=== PATIENT | female | born 1955 | race Caucasian/White ===

== ENCOUNTER 2018-03-31 13:02 | Emergency (ER) | payer MEDICAID ==
[2018-03-31 13:07] VITALS: BP 159/61; PULSE 84; RESP 16; TEMP 98.5; O2SAT 97
--- NOTE | 2018-03-31 13:19 | ED PDOC ---
HPI: General Adult Time Seen by Provider: 03/31/18 13:07 Chief Complaint (Nursing): Back Pain Chief Complaint (Provider): fall History Per: Patient Additional Complaint(s): 62 y/o female presents with low back pain and b/l knee pain s/p trip and fall. Patient tripped on sidewalk. She denies any dizziness or syncope prior to fall. Patient did not sustain head injury or loss of consciousness. She arrives via ambulance for further evaluation. Injury occurred about 1 hour prior to arrival. PMD: Dr. Monae Past Medical History Reviewed: Historical Data, Nursing Documentation, Vital Signs Vital Signs: Last Vital Signs Temp 98.5 F 03/31/18 13:06 Pulse 84 03/31/18 13:06 Resp 16 03/31/18 13:06 BP 159/61 H 03/31/18 13:06 Pulse Ox 97 03/31/18 13:55 - Medical History PMH: Diabetes, HTN, Hypercholesterolemia - Surgical History Surgical History: Other surgeries: cyst removed from left breast - Family History Family History: States: No Known Family Hx - Living Arrangements Living Arrangements: With Family - Social History Current smoker - smoking cessation education provided: No Alcohol: None Drugs: Denies - Home Medications Home Medications: Ambulatory Orders Medication Instructions Recorded Aspirin [Aspirin Low Dose] 81 mg PO DAILY 12/31/14 Atorvastatin [Lipitor] 40 mg PO DAILY 12/31/14 MetFORMIN [glucoPHAGE] 1,000 mg PO BID 12/31/14 cloNIDine [Catapres] 0.1 mg PO DAILY 12/31/14 Amlodipine Besylate/Benazepril 1 cap PO DAILY 03/21/16 [Amlodipine-Benazepril 2.5-10] Aspirin [Adult Low Dose Aspirin EC] 81 mg PO DAILY 03/21/16 Cyclobenzaprine [Flexeril] 5 mg PO Q8H PRN #20 tab 03/21/16 Glimepiride [Amaryl] 4 mg PO DAILY 03/21/16 Ibuprofen [Motrin Tab] 800 mg PO Q8 PRN #20 tab 03/31/18 - Allergies Allergies/Adverse Reactions: Allergies Allergy/AdvReac Type Severity Reaction Status Date / Time iodine Allergy RASH Verified 03/31/18 13:05 Penicillins Allergy RASH Verified 03/21/16 19:35 Review of Systems ROS Statement: Except As Marked, All Systems Reviewed And Found Negative Musculoskeletal: Positive for: Back Pain, Other (b/l knee pain ) Neurological: Positive for: Other (no head injury or LOC) Physical Exam - Reviewed Nursing Documentation Reviewed: Yes Vital Signs Reviewed: Yes - Physical Exam Appears: Positive for: Well, Non-toxic, No Acute Distress Skin: Positive for: Normal Color. Negative for: Rash Eye Exam: Positive for: Normal appearance Neck: Positive for: Normal. Negative for: Pain On Movement Of Neck Cardiovascular/Chest: Positive for: Regular Rate, Rhythm Respiratory: Positive for: Normal Breath Sounds. Negative for: Wheezing, Respiratory Distress Back: Positive for: Vertebral Tenderness (Mild tenderness along midline of lumbar spine with no step-off) Extremity: Positive for: Other (Full range of motion of bilateral knees with pain) Neurologic/Psych: Positive for: Alert, Oriented, Gait (steady) - ECG O2 Sat by Pulse Oximetry: 97 Pulse Ox Interpretation: Normal - Other Rad LS Spine X-ray X-Ray: Interpreted by Me, Viewed By Me X-Ray Interpretation: no fx, no dis, arthritic changes B/l knee x-rays X-Ray: Interpreted by Me, Viewed By Me X-Ray Interpretation: no fx, no dis, arthritic changes Medical Decision Making Medical Decision Makin62 y/o female with b/l knee pain and low back pain s/p fall Plan: PO motrin X-ray LS Spine X-ray b/l knees She is aware of x-ray results, all questions answered. Prescription for Motrin provided. Advised ice and elevation to affected area. Patient was instructed to follow-up with orthopedist for any persistent symptoms, referral was provided. Disposition - Clinical Impression Clinical Impression: Back strain, Knee contusion - Patient ED Disposition Is Patient to be Admitted: No Counseled Patient/Family Regarding: Studies Performed, Diagnosis, Need For Followup, Rx Given - Disposition Referrals: Moe Villavicencio III, MD [Staff Provider] - Disposition: Routine/Home Disposition Time: 14:08 Condition: STABLE Additional Instructions: Take prescription meds as directed as needed for pain. Rest and avoid heavy lifting. Ice and elevate affected areas. Follow-up with primary doctor or orthopedist for any persistent symptoms. Prescriptions: Ibuprofen [Motrin Tab] 800 mg PO Q8 PRN #20 tab PRN Reason: Pain, Moderate (4-7) Instructions: Muscle Strain, Contusion (DC), Knee Sprain (DC), Exercise Band Exercises for the Back and Hips Print Language: MONGOLIAN
--- NOTE | 2018-03-31 14:35 | RAD ---
Date of service: 03/31/2018 PROCEDURE: Radiographs of the Lumbar Spine. HISTORY: trauma COMPARISON: No prior. FINDINGS: BONES: Three views of the lumbar spine were performed. Minimal anterior listhesis of L5 over S1 is noted. Mild endplate changes are seen throughout the lumbar spine region. Mild scoliosis is noted. Moderate degenerate facet changes are seen in the lower lumbar spine region. No lytic process or fracture is seen. No sacroiliac joint widening is noted. DISC SPACES: No significant disc space narrowing. OTHER FINDINGS: None. IMPRESSION: No fracture.
--- NOTE | 2018-03-31 14:37 | RAD ---
Date of service: 03/31/2018 PROCEDURE: Bilateral knee x-ray HISTORY: trauma COMPARISON: No prior TECHNIQUE: Three views of the right and left knee were performed for pain and trauma. FINDINGS: Moderate tricompartmental degenerative joint disease is appreciated bilaterally. No fracture is seen. Minimal left and no significant right joint effusion are seen. No loose body is noted. Tibial plateaus are intact. No lytic process is seen. IMPRESSION: No fracture. Bilateral Tricompartmental degenerative joint disease.
== END 2018-03-31 14:40 | disposition home or self-care (01) ==
LOC: H.ER 13:02
DX: S39.012A Strain of muscle, fascia and tendon of lower back, initial encounter (principal); S80.00XA Contusion of unspecified knee, initial encounter; W01.0XXA Fall on same level from slipping, tripping and stumbling without subsequent striking against object, initial encounter; E11.9 Type 2 diabetes mellitus without complications; I10 Essential (primary) hypertension; Z79.84 Long term (current) use of oral hypoglycemic drugs; Z88.0 Allergy status to penicillin; Y92.480 Sidewalk as the place of occurrence of the external cause
CPT/HCPCS: 72100; 73562; 96372; 99282; J1885